=== PATIENT | female | born 1990 | race Two or more races ===

== ENCOUNTER 2021-12-09 20:47 | Emergency (ER) | payer OTHER ==
[~2021-12-09] VITALS: Ht 177.8 cm; Wt 96.2 kg
[2021-12-09] MEDS ORDERED: NASAL MIST126 ML (20:56)
[2021-12-09] MEDS ORDERED: PANTOPRAZOLE SO40 M2 (20:56)
[2021-12-09] MEDS ORDERED: PEPCID AC20 MG (20:56)
== END 2021-12-10 | disposition home or self-care (01) ==
LOC: ER 20:47
DX: R10.13 Epigastric pain (principal)